=== PATIENT | female | born 1950 | race Caucasian/White ===

== ENCOUNTER → 2017-01-20 | Outpatient (CLI) | payer OTHER ==
[~2017-01-20] MED LIST: ACID CONTROL150 MG PO; ATROVENT 00.5 MG/2.5 IH; COMBIVENT RESPIM4 GM IH; CYCLOBENZAPRINE5 MG PO; ENDOCET 5-3251 EACH PO; FUROSEMIDE20 MG PO; GLIPIZIDE XL10 MG PO; GLIPIZIDE10 MG PO; GLUCOTROL XL10 MG PO; KEPPRA750 MG PO; LEVAQUIN750 MG PO; LEVETIRACETAM750 MG PO; METFORMIN HCL1000 MG PO; MICRO-K10 ME2 PO; MILLIPRED DP5 M1 PO; MORPHINE SULFAT15 M1 PO; NABUMETONE750 MG PO; SIMVASTATIN80 MG PO; ZANAFLEX4 M1 PO; ZESTORETIC 20-1 EAC1 NG
[2017-01-20 09:49] LABS: HEMATOCRIT 39.4 % (36.0-46.0); MCH 30.4 PG (29.0-34.0); MCHC 33.2 G/DL (30.0-36.0); MCV 91.4 FL (83-99); MEAN PLAT.VOLUME 10.1 uM^3 (9.5-12.4); PLATELET COUNT 244 K/uL (156-360); RBC DIS.WIDTH-CV 14.1 % (11.8-14.6); RBC DIS.WIDTH-SD 47.7 % (39-53); RED BLOOD COUNT 4.31 M/uL (3.80-5.20); WHITE BLOOD COUNT 10.7 K/uL (4.1-10.2)
[2017-01-20 09:56] LABS: POINT-OF-CARE METER ID UU14107333
== END | disposition home or self-care (01) ==
LOC: AMB 08:52
PROVIDERS: Internal Medicine Pulmonary Disease
DX: J44.0 Chronic obstructive pulmonary disease with (acute) lower respiratory infection (principal); J18.9 Pneumonia, unspecified organism; T17.828A Food in other parts of respiratory tract causing other injury, initial encounter; I10 Essential (primary) hypertension; E78.5 Hyperlipidemia, unspecified; E11.40 Type 2 diabetes mellitus with diabetic neuropathy, unspecified; F17.200 Nicotine dependence, unspecified, uncomplicated; M19.90 Unspecified osteoarthritis, unspecified site; G47.33 Obstructive sleep apnea (adult) (pediatric)
CPT/HCPCS: 82948; 85027; 87070; 87077; 87116; 87147; 87205; 87206; 87278; 88108; 94640; J2250; J2310; J3010

== ENCOUNTER 2017-10-04 09:48 | Observation (INO) | payer OTHER ==
[~2017-10-04] VITALS: Ht 167.6 cm; Wt 95.3 kg
[~2017-10-04 09:48] MED LIST changes: -ATROVENT 00.5 MG/2.5 IH; +DUONEB 2.5-0.5 M3 ML AEROSOL; -GLUCOTROL XL10 MG PO; +GLUCOTROL10 MG PO; -METFORMIN HCL1000 MG PO; +METFORMIN HCL500 MG PO; -ZESTORETIC 20-1 EAC1 NG; +ZESTORETIC 20-1 EAC1 PO
[2017-10-04 10:30] LABS: BASOPHIL (%) 0.4 % (0-1); EOSINOPHIL (%) 0.9 % (0-5); EOSINOPHIL COUNT 0.1 K/uL (0-0.3); HEMATOCRIT 39.2 % (36.0-46.0); HEMOGLOBIN 13.4 G/DL (11.9-15.5); IMMATURE GRANULOCYTE (%) 0.1 % (0.0-0.7); LYMPHOCYTE COUNT 1.4 K/uL (1.0-2.8); MCHC 34.2 G/DL (30.0-36.0); MCV 90.7 FL (83-99); MONOCYTE (%) 9.3 % (3-12); MONOCYTE COUNT 0.7 K/uL (0-0.8); NEUTROPHIL (%) 71.3 % (45-76); NEUTROPHIL COUNT 5.6 K/uL (1.8-6.4); PLATELET COUNT 171 K/uL (156-360); RBC DIS.WIDTH-CV 12.2 % (11.8-14.6); RED BLOOD COUNT 4.32 M/uL (3.80-5.20); WHITE BLOOD COUNT 7.8 K/uL (4.1-10.2)
[2017-10-04 10:36] LABS: INTER. NORMALIZED RATIO 1.2
[2017-10-04 10:39] LABS: ALBUMIN 3.8 g/dL (3.2-4.8); CHLORIDE 100 mEq/L (99-109); PTT 28.3 SEC (25-37); SODIUM 139 mEq/L (136-147)
[2017-10-04 10:42] LABS: GLUCOSE 98 mg/dL (70-99)
[2017-10-04 10:44] LABS: TOTAL BILIRUBIN 0.5 mg/dL (0.0-1.0)
[2017-10-04 10:45] LABS: ALKALINE PHOSPHATASE 98 IU/L (3-129); CREATININE 1.2 mg/dL (0.6-1.3); GFR ESTIMATE (CALCULATED) 48 mL/min/
[2017-10-04 10:46] LABS: UREA NITROGEN (BUN) 21 mg/dL (9-23)
[2017-10-04 10:47] LABS: AST (GOT) 32 IU/L (2-34)
[2017-10-04 10:48] LABS: ALT (GPT) 31 IU/L (3-49)
[2017-10-04 10:49] LABS: LIPASE 8 U/L (1.0-51.0)
[2017-10-04 10:52] LABS: TROP-I INTERPRETATION NEGATIVE; TROPONIN-I 0.01 ng/mL (0.0-0.30)
[2017-10-04] MEDS ORDERED: CEPHALEXIN500 MG PO (12:33)
[2017-10-04 13:45] LABS: APPEARANCE CLEAR ((CLEAR)); BILIRUBIN NEGATIVE; BLOOD NEGATIVE; COLOR YELLOW ((YELLOW)); GLUCOSE (STRIP) NEGATIVE; KETONES NEGATIVE; LEUKOCYTES NEGATIVE; NITRITE NEGATIVE; PROTEIN (STRIP) NEGATIVE; SPECIFIC GRAVITY 1.016 (1.000-1.030); UCUL ADDED? NO; UROBILINOGEN 0.2 MG/DL (0.2-1.0)
[2017-10-04 16:00] VITALS: BP 147/69
[2017-10-04 19:33] VITALS: BP 117/76
[2017-10-05 00:10] VITALS: BP 123/80
[2017-10-05 03:14] VITALS: BP 122/78
[2017-10-05 05:05] LABS: HEMATOCRIT 34.7 % (36.0-46.0); HEMOGLOBIN 11.8 G/DL (11.9-15.5); MCH 30.6 PG (29.0-34.0); MCV 89.9 FL (83-99); PLATELET COUNT 172 K/uL (156-360); RBC DIS.WIDTH-CV 12.2 % (11.8-14.6); RBC DIS.WIDTH-SD 39.9 % (39-53); RED BLOOD COUNT 3.86 M/uL (3.80-5.20); WHITE BLOOD COUNT 7.8 K/uL (4.1-10.2)
[2017-10-05 05:56] LABS: CHLORIDE 107 MEQ/L (99-109); GLUCOSE 118 mg/dL (70-99); SODIUM 141 MEQ/L (136-147); UREA NITROGEN (BUN) 18 mg/dL (9-23)
[2017-10-05 05:57] LABS: CREATININE 0.6 MG/DL (0.6-1.3); GFR ESTIMATE (CALCULATED) > 59 mL/min/
[2017-10-05 07:05] VITALS: BP 149/65
[2017-10-05 11:34] VITALS: BP 109/56
== END 2017-10-05 14:05 | disposition home or self-care (01) ==
LOC: EME 09:48 → 4EAST 13:15 → EDOF 13:15 → ENRESERV 13:21 → 4EAST 16:01
PROVIDERS: Emergency Medicine; Student in an Organized Health Care Education/Training Program
DX: L01.09 Other impetigo (principal); B95.5 Unspecified streptococcus as the cause of diseases classified elsewhere; L03.115 Cellulitis of right lower limb; I95.9 Hypotension, unspecified; R09.02 Hypoxemia; G89.29 Other chronic pain; E66.01 Morbid (severe) obesity due to excess calories; Z68.33 Body mass index [BMI] 33.0-33.9, adult; J44.9 Chronic obstructive pulmonary disease, unspecified; E11.9 Type 2 diabetes mellitus without complications; I10 Essential (primary) hypertension; Z79.891 Long term (current) use of opiate analgesic; F17.210 Nicotine dependence, cigarettes, uncomplicated; Z82.49 Family history of ischemic heart disease and other diseases of the circulatory system; Z88.6 Allergy status to analgesic agent; Z88.5 Allergy status to narcotic agent; Z91.048 Other nonmedicinal substance allergy status; Z79.84 Long term (current) use of oral hypoglycemic drugs
CPT/HCPCS: 71045; 80048; 80053; 81003; 82533 91; 83605; 83690; 84145 90; 84484; 85025; 85027; 85610; 85730; 87040; G0378; J0295; J1100; J1644; J2310; J2543; J3370; J7030; J7050